=== PATIENT | male | born 2000 | race African-American/Black ===

== ENCOUNTER 2024-03-08 21:06 | Emergency (ER) | payer OTHER, SELFPAY ==
[2024-03-08 21:12] VITALS: BP 134/74; PULSE 74; RESP 18; TEMP 36.7; O2SAT 99; BMI 26.4
--- NOTE | 2024-03-08 21:21 | ED.WOUNDLAC ---
HPI - Wound/Laceration General Time Seen by Provider: 21:21 Date Seen: 03/08/24 Chief Complaint: Laceration/Wound Stated Complaint: L hand lac Time Seen by Provider: 03/08/24 21:07 Source: patient and RN notes reviewed Mode of arrival: ambulatory Limitations: no limitations History of Present Illness HPI narrative: This 23-year-old male is coming in with laceration sustained to his left hand. This happened at work, had a piece of sheet metal cut the back of his hand. Denies any numbness tingling. 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 Wound did bleed, bleeding was controlled. No other injury reported. Place: work Patient tetanus UTD: Yes (12/2019) Context: accidental Associated symptoms: pain Related Data Home Medications ?Medication ?Instructions ?Recorded ?Confirmed No Known Home Medications 03/08/24 03/08/24 Allergies Allergy/AdvReac Type Severity Reaction Status Date / Time No Known Drug Allergies Allergy Verified 03/08/24 21:14 Review of Systems Narrative: As per HPI. PFSH PFS Medical History No significant past medical history Surgical History No significant past surgical history Social History Smoking Status: Never smoker Second hand tobacco smoke exposure: No How often do you have a drink containing alcohol: never AUDIT-C Alcohol total score: 0 Non-prescribed substance use: denies use Exam Const: Vital Signs, click to edit/add: Vital Signs - 24 hr 03/08/24 21:12 Temperature 98.1 F Pulse Rate [Right Pulse Oximeter] 74 Respiratory Rate 18 Blood Pressure [Ri ght Upper Arm] 134/74 Pulse Oximetry 99 Oxygen Delivery Me thod Room Air This 23-year-old male is ambulatory into the ED. He has a horizontally situated laceration about 5 cm long on the dorsum of his hand, overlying the 2nd to 4th metacarpals. 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 There is some oozing from the wound, no active arterial bleeding noted. Distal CMS is intact. The wound is gaping, extends into an beyond the subcutaneous tissue. I can see complete laceration of his extensor tendon along the 3rd metacarpal. He does still have preserved full extension of the fused 2nd and 3rd remnant phalanx, the 2nd extensor tendon is intact giving him preserved resisted extension. The laceration does not fully extend over the extensor tendon of the 4th metacarpal. Did anesthetize the wound with approximately 6 mL of 1% lidocaine, 10 mL was drawn up. Will have staff irrigate the wound. Documenting provider has reviewed patient's vital signs: yes Course Course ED Course: Wound is to be irrigated, I will repair the soft tissues, will talk to Orthopedics about the extensor tendon injury. Consultations Consultation #1: Did speak with [facility]GR[facility] Dee from orthopedics. They will contact patient in the morning, probable surgery tomorrow. Will have him be NPO after midnight, will sew up the superficial wound and splint him in extension. Time: 09:42 Vital Signs Vital signs: Initial Vital Signs Temperature 98.1 F 03/08/24 21:12 Temperature Source Temporal Artery Scan 03/08/24 21:12 Pulse Rate 74 03/08/24 21:12 Respiratory Rate 18 03/08/24 21:12 Blood Pressure 134/74 03/08/24 21:12 Blood Pressure Mean 94 03/08/24 21:12 Blood Pressure Position Sitting 03/08/24 21:12 Pulse Oximetry 99 03/08/24 21:12 Oxygen Delivery Method Room Air 03/08/24 21:12 Vital Signs Temperature 98.1 F 03/08/24 21:12 Pulse Rate 74 03/08/24 21:12 Respiratory Rate 18 03/08/24 21:12 Blood Pressure 134/74 03/08/24 21:12 Pulse Oximetry 99 03/08/24 21:12 Oxygen Delivery Method Room Air 03/08/24 21:12 Temperature 98.1 F 03/08/24 21:12 Pulse Rate 74 03/08/24 21:12 Respiratory Rate 18 03/08/24 21:12 Blood Pressure 134/74 03/08/24 21:12 Pulse Oximetry 99 03/08/24 21:12 Oxygen Delivery Method Room Air 03/08/24 21:12 Medications Administered Medications: Discontinued Medications Generic Name Dose Route Start Last Admin Trade Name Freq PRN Reason Stop Dose Admin Lidocaine HCl 10 ml 03/08/24 21:39 03/08/24 21:40 Lidocaine 1% Mdv INJECTION 03/08/24 21:40 10 ml ONCE ONE Administration Discharge Plan Discharge Clinical Impression: Laceration Patient Disposition: Home, Self-Care Condition: Stable Instructions: Care For Your Stitches (ED), Laceration (ED) Additional Instructions: Keep your phone on and available tomorrow morning, you may get an early phone call possibly even before 7:00 a.m.. The orthopedist will be contacting you in the morning to get you scheduled for surgical time. Please do not eat or drink anything after midnight tonight in preparation for outpatient surgery tomorrow. Please leave the splint on and bandage on the wound. If you have concerns overnight, contact the ER or return. If you have not heard from anyone at the hospital by 9:00 a.m. tomorrow morning, please call the ER and we will help assist you in your follow-up. Diet Detail: Nothing to eat or drink after midnight tonight. Prescriptions: No Action No Known Home Medications Follow Up/Referrals: Julianna Rodriguez, ATC [Field Return Repairer Certified] - Stand Alone Forms: [facility] Info Instructions Procedures Laceration Laceration 1: Pre procedure diagnosis: Left hand laceration with extensor tendon involvement Site marking: not applicable Name of person performing procedure: Marta Abdalla Site: hand Side (If applicable): left Size (cm): 5 Description: linear Depth: involves tendon Local Anesthetic: lidocaine 1% Amount of anesthesia used (mL): 10 Pre-repair: wound explored and irrigated extensively Skin layer closed with: other (Ethilon) Size (cm): 4-0 Technique: running (Simple running suture done as wound will be opened tomorrow.) Wound cleansing: sterile water Estimated blood loss (if any): less than 5mls Conclusion: patient tolerated procedure (Splint in extension of the 2nd and 3rd remnant phalanges through the wrist placed with Ortho Glass.)
[2024-03-08] MEDS: LIDOCAINE 1% MDV 10 ML INJECTION (21:40)
[2024-03-08 22:24] VITALS: BP 134/74; PULSE 74; RESP 18; TEMP 36.7
[2024-03-08 22:25] VITALS: BP 124/78; PULSE 79; RESP 18; TEMP 36.7; O2SAT 99
== END 2024-03-08 22:26 | disposition home or self-care (01) ==
PROVIDERS: Emergency Provider Family Medicine; PCP Family Medicine
DX: S61.412A Laceration without foreign body of left hand, initial encounter (principal); W26.8XXA Contact with other sharp object(s), not elsewhere classified, initial encounter; Y99.0 Civilian activity done for income or pay
CPT/HCPCS: 12002; 99283; J2003

== ENCOUNTER 2024-03-10 08:50 | Day surgery (SDC) | payer MEDICAID, OTHER, SELFPAY ==
[2024-03-10] VITALS (7 sets, daily range): BP systolic 117–138; BP diastolic 68–99; PULSE 50–65; RESP 16; TEMP 36.1–36.4; O2SAT 93–99; BMI 28.1
[2024-03-10] MEDS: fentaNYL 100 MCG/2 ML inj IVP (10:00)
[2024-03-10] MEDS: MIDAZOLAM HCL 1 MG/ML inj IVP (10:00)
[2024-03-10] MEDS: SODIUM CHLORIDE 0.9 % (FLUSH) 10 ML SYRINGE IVF (10:00)
[2024-03-10] MEDS: 0.9 % SODIUM CHLORIDE 500 ML 500 ML 100 ML IV (10:08)
[2024-03-10] MEDS: CEFAZOLIN 2 GM in 0.9 % SODIUM CHLORIDE Mini-bag 100 ML IVPB (10:18)
--- NOTE | 2024-03-10 10:18 | SUR.PREOP ---
TIME?OUT:?1000 PT/RN/MDA?VERIFICATION?OF?SURGICAL?SITE,?PROCEDURE,?AND?CONSENT OBTAINED?PRIOR?TO?INVASIVE?PROCEDURE.
--- NOTE | 2024-03-10 11:05 | W.PM.H&PU ---
History & Physical Update History & Physical Update H&P Reviewed and patient assessed: No changes noted
--- NOTE | 2024-03-10 11:07 | P.NB_ITS ---
Nerve Block Nerve Block Time Seen by Provider: 10:00 Date Seen: 03/10/24 Type of block requested by surgeon for post-operative analgesia: axillary Side: left Time out performed: Yes Verification of patient name: Yes Verification of date of : Yes Site marking: site marked Name of person performing procedure: Matheus Continuous monitoring Was continuous monitoring of O2 sat, B/P, air sampling and monitoring, recorded every 15 minutes?: Yes Procedure Checklist: sterile prep, needles and gloves Ultrasound guided. Images saved: Yes Medications given in 5ml increments after negative aspiration: Ropivicaine %: 0.5 mL: 15 Needle gauge: 22 and Lidocaine %: 2 mL: 10 Patient tolerated procedure well: Yes Additional comments: Needle noted adjacent to nerve Block Charges Block Charge (with Pro Fee): Brachial Plexus Use of Ultrasound Machine for Block: Yes- US Guidance/pain block
--- NOTE | 2024-03-10 11:08 | W.ANESCHARGE ---
Anesthesia Charges Start Date/Time Anesthesia Start Date: 03/10/24 Anesthesia Start Time: 10:08 Stop Date/Time Anesthesia Stop Date: 03/10/24 Anesthesia Stop Time: 11:55
--- NOTE | 2024-03-10 11:11 | PM.ORPRC ---
Procedure Note Date of procedure: 03/10/24 Procedure: PREOPERATIVE DIAGNOSIS: 1. Left hand traumatic laceration from a work comp injury over the dorsum of the hand And suspected finger extensor tendon laceration. POSTOPERATIVE DIAGNOSIS: 1. Left hand traumatic laceration from a work comp injury over the dorsum of the hand 2. Left index finger EIP tendon laceration, complete, zone 6 3. Left index finger EDC tendon laceration, complete, zone 6 4. Left long finger EDC tendon laceration, high-grade partial-thickness, zone 6 PROCEDURE: 1. Left dorsal hand irrigation and debridement including excisional debridement of tissue down to and including the depth of muscle. 2. Left index finger EIP tendon open repair, zone 6 3. Left index finger EDC tendon open repair, zone 6 4. Left long finger EDC tendon open repair, zone 6 SURGEON: Mikal Sanchez MD. REPLANTING MACHINE CREWMAN: Kodi Carrasco PA-C - Of note, an librarian assistant was critical for this case to aid in patient positioning, tissue retraction, limb manipulation/positioning, and closure. ANESTHESIA: Regional block plus MAC EBL: 5 mL IMPLANTS: None TOURNIQUET: 27 minutes at 200 torr forearm tourniquet COMPLICATIONS: None evident INDICATIONS: The patient is a pleasant 23-year-old male who sustained a work related injury on 03/08/2024. While at his job, he reports a piece of sheet metal unfortunately fell onto the dorsum of his left hand across the mid hand. This caused a traumatic laceration. He presented [facility]. wound inspection showed tendon lacerations. The wound was thoroughly irrigated and temporally closed with nylon suture. He return to my clinic on 03/09/2024. At that time, he did have ability to fully extend all digits, but it should be noted that he has a congenital deformity of bilateral hands. Regarding the left hand, the index and long finger metacarpals are separate as of the proximal phalanges, but the skin melds into a single digit. I suspect that the extensor tendon to the index finger was lacerated but the 1 to the long finger was maintained. This will compromise some of his power, but that is the reason that he is still able to fully extend this ?digit?. I am able to help you with a bird feeder any time today after 12, noon. Let me know what works view. DESCRIPTION OF PROCEDURE: Following a thorough discussion of risks, benefits, and alternatives consent was obtained and the operative extremity was marked. The patient was brought to the operating room and placed supine on the operating table after a block was administered in preop holding. Appropriate time-out was performed identifying proper patient, site, procedure. The left upper extremity was prepped and draped in appropriate sterile fashion knee using Betadine prep. 2 g IV Ancef was administered within ROM surgeon preoperatively. The limb was exsanguinated and the tourniquet inflated. The previous traumatic laceration was reopened after removing the nylon sutures prior to the Betadine prep. The wound was thoroughly inspected and found to have complete tendon lacerations of the EIP and EDC to the index finger. High-grade partial-thickness tear of the EDC to the long finger. There is no appreciable foreign debris within the wound. There was muscle laceration noted as well. The 2nd metacarpal was visualized dorsally but no appreciable bone chip or defects were noted. After thorough irrigation normal saline, the ends of the tendon were debrided with a Ray-Maria Del Carmen, and once the ends were freshened, 4-0 FiberWire was utilized and modified Valente technique. 1 suture/2 strain repair was performed given the small tendon size the we worked with. We then performed an epitendinous suturing using 6-0 Prolene. This was done for each of the tendons that were lacerated. This included the EDC tendon that was high-grade partial-thickness tear to the long finger, the EDC tendon to the index finger that was completely lacerated, and the EIP tendon to the index finger that was completely lacerated. Excellent tendon reapproximation was achieved with good epitendinous repair as well. Again, the wound was debrided including muscle with a combination of rongeur, curette, and scalpel. The wound was thoroughly irrigated normal saline. Closure of skin was performed with 4-0 nylon. Tourniquet was deflated, hemostasis confirmed to be achieved. The patient had dressings applied and a splint applied and they were woken / transferred to the PACU in stable condition. PLAN: 1. Encourage elevation of the operative extremity. 2. Maintain the dressing/splint until follow-up. Follow up in 12-15 days. Suture removal 3. Ibuprofen/acetaminophen and/or Percocet as needed for pain control. 4. Ice as needed. 5. Follow up PA visint in 12-15 days. Suture removal, splint removal, and initiate hand therapy.
--- NOTE | 2024-03-10 12:06 | W.ANESCHARGE ---
Anesthesia Charges Start Date/Time Anesthesia Start Date: 03/10/24 Anesthesia Start Time: 10:08 Stop Date/Time Anesthesia Stop Date: 03/10/24 Anesthesia Stop Time: 11:55
== END 2024-03-10 13:33 | disposition home or self-care (01) ==
PROVIDERS: PCP Family Medicine; Visit Provider Orthopaedic Surgery Sports Medicine
PROC: (CPT 26418; principal; 2024-03-10 10:30)
DX: S61.412A Laceration without foreign body of left hand, initial encounter (principal); S66.321A Laceration of extensor muscle, fascia and tendon of left index finger at wrist and hand level, initial encounter; S66.323A Laceration of extensor muscle, fascia and tendon of left middle finger at wrist and hand level, initial encounter; W26.8XXA Contact with other sharp object(s), not elsewhere classified, initial encounter; Y93.H3 Activity, building and construction; Y92.59 Other trade areas as the place of occurrence of the external cause; Y99.0 Civilian activity done for income or pay; G89.18 Other acute postprocedural pain
CPT/HCPCS: 26418 ×3; 01810; 64415; 76942; J0690; J1100; J2250; J2405; J2704; J2795; J3010; J7030